=== PATIENT | male | born 2005 | race Caucasian/White ===

== ENCOUNTER 2024-04-15 14:31 | Emergency (ER) | payer SELFPAY ==
[2024-04-15] MEDS: Bacitracin Oint 1 GM U/D Packet TOP ONE (16:00)
== END 2024-04-15 16:30 | disposition home or self-care (01) ==
LOC: LB.ED 14:31
DX: S71.132A Puncture wound without foreign body, left thigh, initial encounter (principal); W26.0XXA Contact with knife, initial encounter
CPT/HCPCS: 12001; 99282; 99283